=== PATIENT | male | born 1975 | race Two or more races ===

== ENCOUNTER 2023-07-27 08:02 | Emergency (ER) | payer OTHER ==
[~2023-07-27] VITALS: Ht 172.7 cm; Wt 93.9 kg
[~2023-07-27 08:02] MED LIST: CATAFLAM50 MG PO; DEPO-MEDROL40 MG/ML IJ; XYLOCAINE-MP10 MG/ML IM
== END 2023-07-27 09:51 | disposition home or self-care (01) ==
LOC: ER 08:03
DX: H81.12 Benign paroxysmal vertigo, left ear (principal)

== ENCOUNTER 2023-09-30 08:43 | Emergency (ER) | payer OTHER ==
[~2023-09-30] VITALS: Ht 172.7 cm; Wt 94.3 kg
[2023-09-30 14:06] LABS: HEMATOCRIT 44.7 % (39.0-48.0); HEMOGLOBIN 15.5 g/dL (13-16.00); MEAN CELL VOLUME 86.8 fL (80.0-100.00); MEAN CORPUSCULAR HEMOGLOBIN 30.1 pg (27.00-32.0); MEAN CORPUSCULAR HGB CONC 34.7 g/dl (32.0-36.0); PLATELET COUNT 177 K/uL (150-450); RED BLOOD COUNT 5.14 M/uL (4.00-6.00); RED CELL DISTRIBUTION WIDTH 13.4 % (11.5-14.5)
== END 2023-09-30 15:28 | disposition home or self-care (01) ==
LOC: ER 08:44
PROVIDERS: Emergency Medicine
DX: J06.9 Acute upper respiratory infection, unspecified (principal); R05.9 Cough, unspecified; Z20.822 Contact with and (suspected) exposure to COVID-19

== ENCOUNTER → 2024-05-12 | Emergency (ER) | payer OTHER ==
[~2024-05-12] VITALS: Ht 172.7 cm; Wt 94.3 kg
[~2024-05-12] MED LIST changes: +CHOLESTYRAMINE P4 GM PO; +IRBESARTAN75 MG PO; +KETOROLAC TROMETHAMINE 10 MG TABLET PO ONE; +KETOROLAC TROMETHAMINE 30 MG VIAL IM ONE; +KETOROLAC TROMETHAMINE 60 MG VIAL IM ONE; +OMEGA-3 ACID ETH1 GM PO; +ORPHENADRINE CITRATE 100 MG TABLET PO ONE
== END | disposition home or self-care (01) ==
LOC: ER 10:37
DX: M54.89 Other dorsalgia (principal); I10 Essential (primary) hypertension